=== PATIENT | female | born 2005 | race Caucasian/White ===

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

== ENCOUNTER 2024-01-06 12:29 | Outpatient (AMB) | payer BC, SELFPAY ==
--- NOTE | 2024-01-06 12:34 | MHC.PC.OV ---
Vital Signs 01/06/24 12:37 Height 5 ft Weight 116 lb BMI 22.7 BP 100/62 Blood Pressure Location Rt brachial Position Sitting Respiration 16 Pulse 49 L Pulse Source Pulse Oximeter Temp 98.2 F Temp Source Oral Pulse Oximetry (%) 96 Oxygen Delivery Method Room Air Intake Visit Reasons: follow up Intake Note: Follow up. Missing menstrual cycle, ei every other month. Collection Systems Consultant Required: No Allergies Penicillins Allergy (Intermediate, Verified 01/06/24 12:53) Hives Medication List - Last Reconciled 01/06/24 [facility] No Known Home Meds Tobacco use date assessed: 10/14/23 Dental Screening Dental Screen Date: 10/14/23 HPI HPI Comments History of Present Illness Details 17-year-old female with mild intermittent asthma, ADHD, myopia, eczema, vitamin-D deficiency, expressive language & reading disorder (diagnosed by [employer] success 2014 full IQ 83) Specialists Ophthalmology Dr. Cronin Here today to follow up on syncope and collapse that started about 7 months ago. Dad present. Symptoms only occur at the time of her menses. Labs done 10/14/2023: CBC show low white blood cell count 4.1, low neutrophils 41.3, high lymphocytes 50.7 low ANC 1.7, elevated transferrin 348, normal thyroid, normal CMP, urine shows high specific gravity otherwise normal. Since last visit, no syncope or presyncope. Has increased her po intake since last visit. Home now from school, finds it easier to eat. Periods cont to be irregular. LMP 11/05/23. Cont to decline OCP to help regular menses. Last period was not overly heavy. Normal She was referred to Hematology. Her chart shows that she was a no-show. When asked about this she states that she did show up and that she had labs drawn but then a provider never came in to see her. States that her mom has been trying to call the office and not able to get through and did not receive a return phone call. She remains interested in seeing Hematology. I have placed a new referral with these notes for the office to look into this. 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 Discussed the social pressures related to body weight an image in the [employer] industry. Encouraged her to eat and drink and did not become obsessed with a scale or the pressures from the mdoeling industry [facility] Medical History Asthma Surgical History No pertinent past surgical history Family History Mother Asthma Father Hypertension Asthma Social History Household Members: Other Housing: Other Housing Other:: Student Dorm Are you a primary health care / medical job titles to a significant other at home: No Do you presently have visiting nurse or other home services: No 75 years or older and lives alone: No Alcohol intake: never Patient Tobacco Use Status: Never used Tobacco e-Cigarette/Vaping Use: Never Used Second Hand Smoke Exposure: No service: No Current occupational status: student Current occupation: [employer] Current occupational exposures/hazards: No Cognitive needs: No Hearing needs: No Vision needs: Yes (glasses) Female Reproductive History Menstrual Age of Menarche: 13 Questionnaire Thrive Questionnaire Date Thrive assessed: 10/14/23 JAMA-7 AMB Questionnaire JAMA-7 Date JAMA - 7 assessed: 10/14/23 Source: Developed by Drs. Arun Martinez, Daya Dupont, Joseph Moreno and colleagues, with an educational juan david from [employer]. Review of Systems Const All systems reviewed & are unremarkable except as noted in HPI and below Physical exam (Primary Care) Vital Signs: Last Vital Signs Temp 98.2 F 01/06/24 12:37 Pulse 49 L 01/06/24 12:37 Resp 16 01/06/24 12:37 BP 100/62 01/06/24 12:37 Pulse Ox 96 01/06/24 12:37 Oxygen Delivery Method Room Air 01/06/24 12:37 BMI result Body Mass Index 22.7 Tobacco/Smoking Status: Tobacco use Status Tobacco use date assessed 10/14/23 01/06/24 12:39 Patient Tobacco Use Status Never used Tobacco 01/06/24 12:39 e-Cigarette/Vaping Use Never Used 01/06/24 12:39 Thrive Assessment: Date of Thrive Assessment Date Thrive assessed 10/14/23 01/06/24 12:39 Const Other: awake alert NAD accompanied by Dad Harsha scleras non icteric, no pallor MMM Pharynx WNL RRR LS CTAB Skin PWD Soft spoken, cooperative Assessment and Plan Assessment & Plan (1) Syncope and collapse: Comment: No further episodes since the last visit. Refer to hematology for evaluation of neutropenia. I have encouraged her to ensure that she is hydrating properly; avoid prolonged periods of fasting. Eat iron rich foods. Also advised that if she has any trouble getting into Hematology that she should send me a message on the portal so that I may follow up. Code(s): R55 - Syncope and collapse (2) Neutropenia: Comment: CBC show low white blood cell count 4.1, low neutrophils 41.3, high lymphocytes 50.7 low ANC 1.7, elevated transferrin 348, normal thyroid, normal CMP, urine shows high specific gravity otherwise normal Offered her to repeat these blood test today to confirm versus refer to hematology for further management. She wishes to be referred to Hematology. Referral [facility] to [facility]'s hematology group. Code(s): D70.9 - Neutropenia, unspecified Qualifiers: Neutropenia type: unspecified Qualified Code(s): D70.9 - Neutropenia, unspecified Plan This note is constructed using voice recognition software. While every effort has been made to ensure accuracy in manager enrollment, still errors may have been included Sometimes, these errors may affect the content or meaning of the given sentence . Total time spent caring for the patient today was 30 minutes. This includes time spent before the visit reviewing the chart, time spent during the visit, and time spent after the visit on documentation Orders: Referrals Hematology & Oncology Referral D70.9 - Neutropenia, unspecified, R55 - Syncope and collapse Patient Instructions: Return to office in June for complete physical exam. Sooner as needed. Coding Level of Care Code Est Pt Level 4 (26182) Diagnoses Syncope and collapse R55 Neutropenia, unspecified type D70.9 Neutropenia type: unspecified
[2024-01-06 12:37] VITALS: BP 100/62; PULSE 49; RESP 16; TEMP 36.8; O2SAT 96; BMI 22.7
== END 2024-01-06 13:02 | disposition home or self-care (01) ==
PROVIDERS: PCP Nurse Practitioner Family; Visit Provider Nurse Practitioner Family
DX: R55 Syncope and collapse (principal); D70.9 Neutropenia, unspecified
CPT/HCPCS: 99214

== ENCOUNTER → 2024-01-14 11:20 | Outpatient (BNV) | payer BC, SELFPAY | PROVIDERS: PCP Nurse Practitioner Family; Visit Provider Internal Medicine Medical Oncology | DX: D70.9 Neutropenia, unspecified (principal) | CPT/HCPCS: 99204 ==

== ENCOUNTER 2024-07-21 07:54 | Outpatient (AMB) | payer BC, SELFPAY ==
--- NOTE | 2024-07-21 07:57 | A.OFFPC_ITS ---
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 Nurse Unit Manager Required: No Allergies Penicillins Allergy (Intermediate, Verified 07/21/24 08:32) Hives Medication List - Last Reconciled 07/21/24 by ADELE Lynn No Known Home Meds Tobacco use date assessed: 10/14/23 Dental Screening Dental Screen Date: 07/21/24 Did you have a dental visit in the last 12 months?: Yes Did you have a dental problem in the last 6 months where you did not have access to dental care?: No Was dental information given to patient?: Patient has dentist HPI HPI Comments History of Present Illness Details 18-year-old female with mild intermitten t asthma, ADHD, myopia, eczema, vitamin-D deficiency, expressive language & reading disorder (diagnosed by [employer] for [employer] success 2014 full IQ 83) Surgery:None Family hx: Dad with DM, CV disease,CHF; Paternal aunt CV disease,CHF; older si ster w/ down syndrome & assoc heart disease other siblings alive and well 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 Mehrdad [place] [facility] [place] Consider bone marrow exam if wbc drops again, and falls to 2 or below. 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 Not sexually active. Does own breast exam. Last period 06/25-07/11/24, periods normal. No more fainting Eating and drinking; wt stable. Optho - glasses; last exam 3 years ago. Skin - no issues Left ankle, sprained during Volleyball years ago; then in 2019 after having COVID, wakes some days with pain on inside aspect of this ankle w/o swelling, bruising or skin changes. Has never had imaging done. Pain comes and goes. No worse since onset. Labs reviewed, normal Alk Phos trending. Plan Labs drawn today and cc'd to Heme. If abnormal, will need to f/u with heme --- results below show normal WBC. Per last note from david: 12/2023 consult Consider bone marrow exam if wbc drops again, and falls to 2 or be RTO 1 year for CPE and sooner PRN PFSH Medical History Asthma Surgical History No pertinent past surgical history Family History Mother Asthma Father Hypertension Asthma Social History (Updated 01/14/24 @ 11:12 by Alysha Chandler) Household Members: Other Housing: Other Housing Other:: Student Dorm Are you a primary care partner to a significant other at home: No Do you presently have visiting nurse or other home services: No 75 years or older and lives alone: No Alcohol intake: never Patient Tobacco Use Status: Never used Tobacco e-Cigarette/Vaping Use: Never Used Second Hand Smoke Exposure: No service: No Current occupational status: student Current occupation: [employer] Current occupational exposures/hazards: No Cognitive needs: No Hearing needs: No Vision needs: Yes (glasses) Female Reproductive History Menstrual Age of Menarche: 13 Questionnaire PHQ-9 Over the last 2 weeks, how often have you been bothered by any of the following problems? 1. Little interest or pleasure in doing things: not at all 2. Feeling down, depressed, or hopeless: not at all 3. Trouble falling or staying asleep, or sleeping too much: not at all 4. Feeling tired or having little energy: not at all 5. Poor appetite or overeating: not at all 6. Feeling bad about yourself - or that you are a failure or have let yourself or your family down: not at all 7. Trouble concentrating on things, such as reading the newspaper or watching television: not at all 8. Moving or speaking so slowly that other people could have noticed. Or the opposite - being so fidgety or restless that you have been moving around a lot more than usual: not at all 9. Thoughts that you would be better off or of hurting yourself in some way: not at all Total score: 0 Depression Screening Interpretation: Negative Depression Screening Done: Yes 81846 - PHQ-9 Billing: Yes Source: Developed by Drs. Arun Martinez, Joseph Conroy and colleagues, with an educational juan david from [employer]. Thrive Questionnaire Date Thrive assessed: 07/21/24 I am a: Patient What is your living situation today?: I have a steady place to live Within the past 12 months, did the food you bought not last and you didn't have the money to get more?: Never true Within the past 12 months, did you worry whether your food would run out before you got money to buy more?: Never true Do you have trouble paying for medicines?: No Do you have trouble getting transportation to medical appointments?: No Do you have trouble paying your heating and electricity bill?: No Do you have trouble taking care of your child, family member or friend?: No Do you have trouble with day-to-day activities such as bathing, preparing meals, shopping, managing finances, etc.?: No Are you currently unemployed and looking for a job?: No Are you interested in more education?: No Please select the resources that you would like help with: None Currently or been in a relationship where the following occur: No concerns reported THRIVE Score: 0 AUDIT C Alcohol Use Questionnaire (AUDIT-C) 1. How often do you have a drink containing alcohol?: Never 3. How often do you have six or more drinks on one occasion?: Never Total Score: 0 Score Reviewed/Action Taken: Yes JAMA-7 AMB Questionnaire JAMA-7 Date JAMA - 7 assessed: 07/21/24 Feeling nervous, anxious, or on edge: 0 = Not at all Not being able to stop or control worryin = Not at all Worrying too much about different things: 0 = Not at all Trouble relaxin = Not at all Being so restless that it is hard to sit still: 0 = Not at all Becoming easily annoyed or irritable: 0 = Not at all Feeling afraid as if something awful might happen: 0 = Not at all Total JAMA-7 score (0-4 normal; 5-9 mild; 10-14 moderate; 15-21 severe): 0 Source: Developed by Daya Padilla Kurt Kroenke and colleagues, with an educational juan david from [employer]. JAMA-7 Assessment Billing JAMA-7 Assessment Tool: JAMA-7 Assessment 28528 Physical exam (Primary Care) Vital Signs: Last Vital Signs Pulse 62 07/21/24 08:07 Resp 13 07/21/24 08:07 BP 111/65 07/21/24 08:07 Pulse Ox 97 07/21/24 08:07 Oxygen Delivery Method Room Air 07/21/24 08:07 BMI result Body Mass Index 23.6 Tobacco/Smoking Status: Tobacco use Status Tobacco use date assessed 10/14/23 07/21/24 07:57 Patient Tobacco Use Status Never used Tobacco 07/21/24 07:57 e-Cigarette/Vaping Use Never Used 07/21/24 07:57 PHQ-9: PHQ-9 Score PHQ-9: Total score 0 07/21/24 08:51 Depression Screening Interpretation: Negative Thrive Assessment: Date of Thrive Assessment Date Thrive assessed 07/21/24 07/21/24 08:03 Currently or been in a relationship where the following occur: No concerns reported Const Other: General: Well developed, well nourished, in no acute distress. Appears stated age. Head: Normocephalic, atraumatic. Eyes: Pupils are equal, round and reactive to light and accommodation. Conjunctivae are clear. Vision grossly normal. Ears: TMs clear AU, EACS WNL Nose: Patent, without discharge. Mouth: There are no ulcers or lesions noted. No inflammation, no post nasal drip, no plaques nor exudates. Neck: Supple, no adenopathy or thyromegaly. Lungs: Clear to auscultation bilaterally. No rales, rhonchi or wheeze noted. Good air flow in all cunningham. Heart: Regular rate and rhythm. No murmurs, click, rubs or gallops are noted. Abdomen: Bowel sounds present in all quadrants. The abdomen is soft, nontender, with no masses or organomegaly noted. No hernias are noted. Musculoskeletal: Joints are nontender, without swelling, redness, or effusions. Range of motion is observed to be normal. Pulses: Peripheral pulses are equal and palpable bilaterally. Extremities: No clubbing, cyanosis nor edema is noted. Neurologic: Gait and station normal. Cranial Nerves 2-12 intact. Motor strength grossly symmetrical and intact. No sensory loss. Balance normal. Skin: No rashes, ulcers, or lesions noted. Turgor is good. Skin color is good. Hair and nails are without abnormalities. Psych: Normal eye contact, affect and mood appropriate, and normal interactions. Patient is alert and appropriate to context. Office Procedures Flu Questionnaire Does the patient have a severe egg allergy?: No Does the patient have severe life threatening allergies?: No Does the patient have a fever or illness today?: No Has the patient ever had Guillain-Wilsall Syndrome?: No Has the patient ever had any past reaction to a flu shot?: No Immunizations Fluarix Triv [id number] (PF) 45 mcg (15 mcg x 3)/0.5 mL IM syringe Performing Provider: ANNE Lynn [place]forming [place] [facility] Administered by: Nellie Jiang RN on 07/21/24 08:50 Dose Route Admin Location Dispensed Lot Number Expiration Date NDC Mall Plant Caretaker 0.5 mL IM Right Deltoid 0.5 mL [id number] 02/15/25 [id number] Mobly VIS Given Date VIS Provided VIS Publication Date 07/21/24 Single Vaccine 21 Eligibility Eligibility Date Funding Source Not [facility] Eligible 07/21/24 Private Results Reviewed Results Reviewed: RUN: 07/21/24 1559 PAGE 1 [facility] [address] [place] [id number] Bus Repair Supervisor: Marcello Montaño M.D. 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: 07/21/24 ENTERED: 07/21/[address] [facility] [address]: Marian Barillas MD ORDERED: CBC Man Diff, Abs Neut Count Test Result Flag Reference WBC 4.8 4.8-10.8 X10*3/uL RBC 4.53 4.20-5.50 X10*6/uL HGB 13.3 12.0-16.0 g/dl HCT 38.8 37.0-47.0 % MCV 85.7 80.0-98.0 fL MCH 29.4 27.0-33.0 pg MCHC 34.3 31.0-35.0 g/dl RDW 12.3 11.0-16.0 % PLT 227 160-400 X10*3/uL MPV 10.7 9.4-12.3 fL NRBC Pct Auto 0.0 0.0-0.2 /100WBC ANC Neut Abs # 2.3 2.0-8.3 x10*3/uL NRBC Abs Auto 0.000 0.0-0.012 X10*3/uL Neut Pct Manual 49 45-73 % Band Pct 2 L 3-5 % Lymph PctManual 38 20-40 % AtLymph Pct Man 1 0-6 % [place] Pct Manual 9 2-11 % Eos Pct Manual 1 0-4 % ANC NeutAbsMan 2.4 2.0-8.3 X10*3/uL Lymph Abs Man 1.8 1.2-4.9 X10*3/uL [place] Abs Manual 0.4 0.1-1.2 X10*3/uL Platelet Est NORMAL NORMAL Plt Morph Com NORMAL RBC Morph NORMAL END OF REPORT Coding Level of Care Code Est Pt Prev Care 18-39y([id number]) Diagnoses Encounter for general adult medical examination without abnormal findings Z00.00 Neutropenia, unspecified type D70.9 Neutropenia type: unspecified Influenza vaccination administered at current visit Z23 Additional Codes JAMA-7 Assessment Billing - JAMA-7 Assessment Tool: JAMA-7 Assessment 88628 ([id number]) PHQ-9 - 66090 - PHQ-9 Billing: Yes ([id number]) Assessment & Plan Assessment & Plan (1) Encounter for general adult medical examination without abnormal findings: Code(s): Z00.00 - Encounter for general adult medical examination without abnormal findings (2) Neutropenia: Code(s): D70.9 - Neutropenia, unspecified Category: Medical Qualifiers: Neutropenia type: unspecified Qualified Code(s): D70.9 - Neutropenia, unspecified (3) Influenza vaccination administered at current visit: Code(s): Z23 - Encounter for immunization Plan . Orders: Orders Complete Blood Count Man Dif Today D70.9 - Neutropenia, unspecified Absolute Neutrophil Count Today D70.9 - Neutropenia, unspecified Influenza [id number] Immunization Today Z23 - Encounter for immunization Patient Instructions: Health screenings for women You should visit your health care provider from time to time, even if you are healthy. The purpose of these visits is to: Screen for medical issues Assess your risk for future medical problems Encourage a healthy lifestyle Update vaccinations and other preventive care services Help you get to know your provider in case of an illness Information Even if you feel fine, you should still see your provider for regular checkups. These visits can help you avoid problems in the future. For example, the only way to find out if you have high blood pressure is to have it checked regularly. High blood sugar and high cholesterol levels also may not have any symptoms in the early stages. A simple blood test can check for these conditions. There are specific times when you should see your provider or receive specific health screenings. The [place] Preventive Services Task Force publishes a list of recommended screenings. Below are screening guidelines for women ages 18 to 39. BLOOD PRESSURE SCREENING Your blood pressure should be checked at least once every 3 to 5 years if: Your blood pressure is in the normal range (top number less than 120 mm Hg and bottom number less than 80 mm Hg) You don't have risk factors for high blood pressure Ask your provider if you need your blood pressure checked more often if: The top number is 120 to 129 mm Hg or the bottom number is 70 to 79 mm Hg You have diabetes, heart disease, kidney problems, are overweight, or have certain other health conditions You have a first-degree relative with high blood pressure You are Black You had high blood pressure during a If the top number is 130 mm Hg or greater or the bottom number is 80 mm Hg or greater, this is considered stage 1 hypertension. Schedule an appointment with your provider to learn how you can reduce your blood pressure. Watch for blood pressure screenings in your area. Ask your provider if you can stop in to have your blood pressure checked. BREAST CANCER SCREENING Experts do not agree about the benefits of breast self-exams in finding breast cancer or saving lives. Talk to your provider about what is best for you. A screening mammogram is not recommended for most women under age 40. Your provider may discuss and recommend mammograms, MRI scans, or ultrasounds if you have an increased risk for breast cancer, such as: A mother or sister who had breast cancer at a young age (most often starting screening earlier than the age the close relative was diagnosed) You carry a high-risk genetic marker CERVICAL CANCER SCREENING Cervical cancer screening should start at age 21 years unless your provider advises otherwise. After the first test: Women ages 21 through 29 should have a Pap test every 3 years. Exoprts do not agree on whether HPV testing is recommended for this age group. Women ages 30 through 65 should be screened with either a Pap test every 3 years or the HPV test every 5 years or both tests every 5 years (called cotesting ). Women who have been treated for precancer (cervical dysplasia) should continue t o have Pap tests for 20 years after treatment or until age 65, whichever is longer. If you have had your uterus and cervix removed (total hysterectomy), and you have not been diagnosed with cervical cancer or precancer (high grade cervical neoplasia), you do not need cervical cancer screening. CHOLESTEROL SCREENING Cholesterol screening should begin at: Age 45 for women with no known risk factors for coronary heart disease Age 20 for women with known risk factors for coronary heart disease Repeat cholesterol screening should take place: Every 5 years for women with normal cholesterol levels More often if changes occur in lifestyle (including weight gain and diet) More often if you have diabetes, heart disease, kidney problems, or certain other conditions DIABETES SCREENING You should be screened for diabetes starting at age 35 and then repeated every 3 years if you have no risk factors for diabetes. Screening may need to start earlier and be repeated more often if you have other risk factors for diabetes, such as: You have a first degree relative with diabetes. You are overweight or have obesity. You have high blood pressure, prediabetes, or a history of heart disease. Screening for diabetes should be done if you are planning to become and you are overweight and have other risk factors such as high blood pressure. DENTAL EXAM Go to the dentist once or twice every year for an exam and cleaning. Your dentist will evaluate if you need more frequent visits. EYE EXAM Have an eye exam every 5 to 10 years before age 40. If you have vision problems, have an eye exam every 2 years or more often if recommended by your provider. You should have an eye exam that includes an examination of your retina (back of your eye) at least every year if you have diabetes. IMMUNIZATIONS Commonly needed vaccines include: Flu shot: get one every year. COVID-19 vaccine: ask your provider what is best for you. Tetanus-diphtheria and acellular pertussis (Tdap) vaccine: have one at or after age 19 as one of your tetanus-diphtheria vaccines if you did not receive it as an adolescent. Tetanus-diphtheria: have a booster (or Tdap) every 10 years. Varicella vaccine: receive 2 doses if you never had chickenpox or the varicella vaccine. Hepatitis B vaccine: receive 2, 3, or 4 doses, depending on your exact circumstances. Measles, mumps, and rubella (MMR) vaccine: receive 1 to 2 doses if you are not already immune to MMR. Your provider can tell you if you are immune. Ask your provider about the human papillomavirus (HPV) vaccine if: You have not received the HPV vaccine in the past You have not completed the full vaccine series (you should catch up on this shot) Ask your provider if you should receive other immunizations if you have certain health problems that increase your risk for some diseases such as pneumonia. INFECTIOUS DISEASE SCREENING Women who are sexually active should be screened for chlamydia and gonorrhea up until age 25. Women 25 years and older should be screened for chlamydia and gonorrhea if at high risk. Screening for hepatitis C: All adults ages 18 to 79 should get a one-time test for hepatitis C. people should be screened at every . Screening for human immunodeficiency virus (HIV): All people ages 15 to 65 should get a one-time test for HIV. Depending on your lifestyle and medical history, you may also need to be screened for infections such as syphilis and HIV, as well as other infections. PHYSICAL EXAM All adults should visit their provider from time to time, even if they are healthy. The purpose of these visits is to: Screen for disease Assess your risk of future medical problems Encourage a healthy lifestyle Update your vaccinations and other preventive care services Maintain a relationship with a provider in case of an illness Your height, weight, and BMI should be checked at every exam. During your exam, your provider may ask you about: Depression and anxiety Diet and exercise Alcohol and tobacco use Safety issues, such as using seat belts, smoke detectors, and intimate partner violence Your medicines and risk for interactions SKIN SELF-EXAM Your provider may check your skin for signs of skin cancer, especially if you're at high risk, such as if you: Have had skin cancer before Have close relatives with skin cancer Have a weakened immune system OTHER SCREENING Talk with your provider about colon cancer screening if you have a strong family history of colon cancer or polyps, or if you have had inflammatory bowel disease or polyps yourself. Routine bone density screening of women under 40 is not recommended.
[2024-07-21 08:07] VITALS: BP 111/65; PULSE 62; RESP 13; O2SAT 97; BMI 23.6
== END 2024-07-21 08:50 | disposition home or self-care (01) ==
PROVIDERS: PCP Nurse Practitioner Family; Visit Provider Nurse Practitioner Family
DX: Z00.00 Encounter for general adult medical examination without abnormal findings (principal); D70.9 Neutropenia, unspecified; Z23 Encounter for immunization

== ENCOUNTER 2024-07-21 08:02 | Outpatient (REF) | payer BC, SELFPAY ==
[2024-07-21 11:23] LABS: Baso%MD 0.4 %; Eos%MD 1.2 %; Hematocrit 38.8 % (37.0-47.0); Hemoglobin 13.3 g/dl (12.0-16.0); IG%MD 0.2 %; Mean Corpuscular HGB Conc 34.3 g/dl (31.0-35.0); Mean Corpuscular Hemoglobin 29.4 pg (27.0-33.0); Mean Corpuscular Volume 85.7 fL (80.0-98.0); Mean Platelet Volume 10.7 fL (9.4-12.3); Mono%MD 8.9 %; Neut%MD 47.3 %; Neutrophils Absolute Auto 2.3 x10*3/uL (2.0-8.3); Platelet Count 227 X10*3/uL (160-400); Red Blood Count 4.53 X10*6/uL (4.20-5.50); Red Cell Distribution Width 12.3 % (11.0-16.0); WBCANC 4.8 X10*3/uL; White Blood Count 4.8 X10*3/uL (4.8-10.8)
[2024-07-21 12:28] LABS: Atypical Lymphs Percent Manual 1 % (0-6); Band Neutrophils Percent 2 % (3-5); Eosinophils Percent Manual 1 % (0-4); Lymphocytes Absolute Manual 1.8 X10*3/uL (1.2-4.9); Lymphocytes Percent Manual 38 % (20-40); Monocytes Absolute Manual 0.4 X10*3/uL (0.1-1.2); Monocytes Percent Manual 9 % (2-11); Neutrophils Absolute Manual 2.4 X10*3/uL (2.0-8.3); Neutrophils Percent Manual 49 % (45-73)
[2024-07-21 12:30] LABS: Platelet Estimate NORMAL (NORMAL); RBC Morphology NORMAL
[2024-07-21 12:32] LABS: Platelet Morphology Comment NORMAL
== END 2024-07-21 08:03 | disposition home or self-care (01) ==
LOC: HO.WFDLDS 08:02
PROVIDERS: Visit Provider Nurse Practitioner Family
DX: Z00.00 Encounter for general adult medical examination without abnormal findings (principal); Z23 Encounter for immunization; D70.9 Neutropenia, unspecified
CPT/HCPCS: 36415; 85007; 85027; 90471; 90656; 96127

== ENCOUNTER 2025-07-30 08:00 | Outpatient (REF) | payer BC, SELFPAY ==
[2025-07-30 11:14] LABS: Hematocrit 40.0 % (37.0-47.0); Hemoglobin 13.5 g/dl (12.0-16.0); Mean Corpuscular HGB Conc 33.8 g/dl (31.0-35.0); Mean Corpuscular Hemoglobin 29.3 pg (27.0-33.0); Mean Corpuscular Volume 86.8 fL (80.0-98.0); NRBC Abs Auto 0.000 X10*3/uL (0.0-0.012); NRBC Pct Auto 0.0 /100WBC (0.0-0.2); Platelet Count 295 X10*3/uL (160-400); Red Blood Count 4.61 X10*6/uL (4.20-5.50); White Blood Count 4.7 X10*3/uL (4.8-10.8)
[2025-07-30 11:28] LABS: Alanine Aminotransferase 14 U/L (0-31); Albumin Level 4.9 g/dL (3.5-5.0); Alkaline Phosphatase 58 U/L (39-117); Anion Gap 9 (12-20); Aspartate Amino Transferase 18 U/L (5-31); Blood Urea Nitrogen 8 mg/dL (9-16); Calcium 9.6 mg/dL (8.4-10.2); Carbon Dioxide 27 mmol/L (22-29); Chloride 108 mmol/L (96-108); Estimated Glomerular Filt Rate > 60; Potassium 4.1 mmol/L (3.3-5.1); Sodium 140 mmol/L (135-145); Total Protein 7.3 g/dL (6.5-8.0)
== END 2025-07-30 08:01 | disposition home or self-care (01) ==
LOC: HO.WFDLDS 08:00
PROVIDERS: PCP Nurse Practitioner Family; Visit Provider Nurse Practitioner Family
DX: Z00.00 Encounter for general adult medical examination without abnormal findings (principal); Z23 Encounter for immunization; R07.89 Other chest pain; R59.0 Localized enlarged lymph nodes; D70.9 Neutropenia, unspecified; F41.1 Generalized anxiety disorder
CPT/HCPCS: 36415; 80053; 85027; 90471; 90656; 96127

== ENCOUNTER 2025-07-30 08:00 | Outpatient (AMB) | payer BC, SELFPAY ==
--- NOTE | 2025-07-30 08:02 | A.OFFPC_ITS ---
Vital Signs 3 07/30/25 08:05 Height 5 ft Weight 128 lb 4 oz BMI 25.0 BP 98/66 Blood Pressure Location Lt brachial Position Sitting Respiration 12 Pulse 71 Pulse Source Pulse Oximeter Temp 97.7 F Temp Source Oral Pulse Oximetry (%) 99 Oxygen Delivery Method Room Air Intake Visit Reasons: 1 year CPE Intake Note: CPE. Patient c/o chest sticking out. Emt Basic Required: No Allergies Penicillins Allergy (Intermediate, Verified 07/30/25 08:09) Hives Medication List - [facility] No Known Home Meds Tobacco use date assessed: 07/30/25 Dental Screening Dental Screen Date: 07/30/25 Did you have a dental visit in the last 12 months?: Yes Did you have a dental problem in the last 6 months where you did not have access to dental care?: No Was dental information given to patient?: Patient has dentist HPI HPI Comments 2 History of Present Illness0 Details 19-year-old female with mild intermitten t asthma, ADHD, myopia, eczema, vitamin-D deficiency, expressive language & reading disorder (diagnosed by [employer] 2014 full IQ 83), neutropenia, vasovagal syncope and collapse Surgery:None Family hx: Dad with DM, CV disease,CHF; Paternal aunt CV disease,CHF; older sister w/ down syndrome & assoc heart disease other siblings alive and well 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 Cronin 06/2025 wears glasses Heme at [facility] [place] 12/2023 consult Consider bone marrow exam if wbc drops again, and falls to 2 or below. 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 Here w/ mom today Chest Mass: - The patient reports that about two mon ths ago, her mother noticed a bump on her chest that felt weird when pressed. - She reports that the bump is now small er than it was. - She denies any pain when the area is t ouched now. Chest Pain: - She experienced chest pain during card io exercise with her roommate about a month ago. - She also reports that her chest hurts when she walks outside in the cold. - She describes the pain as feeling like her actual heart is hurting and is associated with a rapid heartbeat. - She denies any recent fainting episode s or wheezing. Anxiety: - The patient reports recent complaints of anxiety. - She describes episodes triggered by st ress, such as during the summer at a festival, where she felt anxiety and started crying. - During these episodes, she just cries. - She states it happens when she is real ly stressed about something and can identify triggers beforehand, but a recent episode at a festival was a surprise. - Her primary symptom is anxiety, and sh e denies feeling depressed. - She denies any thoughts about pregnanc y. - The patient is not currently in [facility]. Neutropenia: - The patient has a history of neutropen ia. - She is followed by a meat hostess prn, who recommended annual blood count checks. - Her numbers looked good last year. Mild Intermittent Asthma: - The patient has a history of mild inte rmittent asthma, which is well- controlled without medication. Past Medical History - Mild intermittent asthma, well control led without medication. - ADHD, controlled without medications. - Myopia. - Eczema. - Vitamin D deficiency. - History of expressive language and brayden ding disorder. - Neutropenia. - History of vasovagal syncope with clint apse. Past Surgical History - No prior surgeries were discussed. Family History - No changes in family history were repo rted over the last year. Social History - She is a college student majoring in [employer] and is expected to graduate. - She reports good eating habits and flu id intake. - She engaged in cardio exercise with he r roommate a month ago. - SBE - Periods are regular better saw GY N not due for Pap until age 20 Review of Systems - Constitutional: Denies fever, chills. Reports good eating and fluid intake. - Eyes: Reports myopia. Vision is okay, last checked a month ago. - ENT: Denies congestion. - Cardiovascular: Reports chest pain wit h cardio exercise and exposure to cold, associated with palpitations. Denies syncope. - Respiratory: Denies wheezing. - GI: Reports normal bowel movements. - : Reports normal urination. - Musculoskeletal: Reports a palpable bu mp on her chest. Denies pain in her hip or back during range of motion testing. - Integumentary: Reports well-controlled eczema. - Psychiatric: Reports episodes of anxie ty and crying triggered by stress. Denies depression. Physical Exam General: Well developed, well nourished, in no acute distress. Appears stated age. Head: Normocephalic, atraumatic. Eyes: Pupils are equal, round and reactive to light and accommodation. Conjunctivae are clear. Scleras nonicteric bilat. Vision grossly normal. Ears: TMs mildly cloudy bilat, AU, EACS WNL. Nose: Patent, without discharge. Neck: No carotid bruit bilat. Supple, no adenopathy or thyromegaly. Breast: Edu on SBE. Lungs: Clear to auscultation bilaterally. No rales, rhonchi or wheeze noted. Good air flow in all cunningham. Heart: Regular rate and rhythm. No murmurs, click, rubs or gallops are noted. Patient reports episodes of chest pain and heart beating fast. Abdomen: Bowel sounds present in all quadrants. The abdomen is soft, nontender, with no masses or organomegaly noted. No hernias are noted. : Deferred. Reviewed recommendations for routine LORRY WEIGHER. Pulses: Peripheral pulses are equal and palpable bilaterally. Extremities: No clubbing, cyanosis nor edema is noted. Neurologic: Gait and station normal. Cranial Nerves 2-12 intact. Motor strength grossly symmetrical and intact. No sensory loss. Balance normal. Skin: No rashes, ulcers, or lesions noted. Turgor is good. Skin color is good. Hair and nails are without abnormalities. Eczema reported as being good. Psych: Normal eye contact, affect and mood appropriate, and normal interactions. Patient is alert and appropriate to context. Reports anxiety episodes, crying, and stress-related symptoms. Referral for counseling suggested. Results Pending Medical Decision Making The patient is a 19-year-old female here for a complete physical exam. Her primary concerns are a recently noticed bump on her sternum and associated chest pain, as well as increasing anxiety. Given the new finding of a palpable sternal abnormality, a chest CT with and without contrast is warranted for further evaluation. For her anxiety, which appears to be triggered by stress and is impacting her quality of life, a multi-modal approach is appropriate. A referral for counseling will be placed to provide therapeutic support. After discussing treatment options, including as-needed versus daily medication, the patient has agreed to start a daily SSRI. I will prescribe citalopram (Celexa) starting at a low dose of 5 mg for two weeks, then increasing to 10 mg daily, to minimize side effects and improve tolerability. A virtual follow-up in 6-8 weeks will be scheduled to assess her response to the medication. For health maintenance, she will receive her annual flu shot today. We will also repeat her annual blood work to monitor her history of neutropenia, and the results will be shared with her meat hostess. The patient's other chronic conditions, including mild intermittent asthma and ADHD, are stable and well- controlled without medication. Plan Health Maintenance - The patient will receive her annual in fluenza vaccine during today's visit. - She will proceed to the lab for blood work after her appointment. - She should schedule her next annual ph ysical exam in one year. 1. Chest Mass - A chest CT with and without IV contras t will be ordered to evaluate the palpable abnormality over the sternum. - The scan will be submitted to [employer] for approval before scheduling. 2. Anxiety - A referral for counseling/therapy will be placed; the patient can choose virtual or in-person sessions. - Citalopram (Celexa) 10 mg tablets will be prescribed. She is instructed to take a half tablet (5 mg) daily for the first two weeks and then increase to a full tablet (10 mg) daily. - A virtual follow-up appointment will b e scheduled in 6-8 weeks to monitor the medication's effectiveness and side effects. 3. Neutropenia - Annual lab work will be ordered to heide ck her blood counts. - Results will be sent to her hematologi st, for continued monitoring. Patient Instructions - You will receive your flu shot today b efore you leave. - We will order a CT scan of your chest to look at the bump you noticed. We will send this request to your insurance, and the imaging center will call you to schedule it once it is approved. - We have sent a prescription for citalo pram to your pharmacy. For the first two weeks, break the tablet in half and take one half (5 mg) each day. After two weeks, you can start taking one whole tablet (10 mg) each day. You can take it any time of day, but try to be consistent. - This medication can sometimes cause a dull headache or an upset stomach when you first start. These side effects should go away. Taking it with a little food may help with stomach upset. - We are placing a referral for you to s [place] with a counselor about anxiety. You can tell them if you prefer virtual or in-person visits. - Please stop at the desk interviewer to get y our lab work done today and to schedule two follow-up appointments: one virtual visit in about 6 weeks to check on your new medication, and another physical exam in one year. - We will call you with your lab results . Consent Patient was informed and verbally consented to the use of an ambient scribe for clinic note documentation during this visit. An additional 20 minutes was spent addressing the problem(s) noted at todays visit. This includes time spent before the visit reviewing the chart, time spent during the visit, and time spent after the visit on documentation reviewing laboratory results, diagnostic imaging, medications, performing a medically necessary evaluation, counseling on diagnoses, care coordination, ordering appropriate tests, ordering appropriate medications, review of tests performed by other providers, reporting test results with the patient, communication with other healthcare providers. [facility] Medical History Asthma Surgical History No pertinent past surgical history Family History Mother Asthma Father Hypertension Asthma Social History (Updated 01/14/24 @ 11:12 by Alysha Chandler) Household Members: Other Housing: Other Housing Other:: Student Dorm Are you a primary care transition mgr to a significant other at home: No Do you presently have visiting nurse or other home services: No 75 years or older and lives alone: No Alcohol intake: never Patient Tobacco Use Status: Never used Tobacco e-Cigarette/Vaping Use: Never Used Second Hand Smoke Exposure: No service: No Current occupational status: student Current occupation: [employer] Current occupational exposures/hazards: No Cognitive needs: No Hearing needs: No Vision needs: Yes (glasses) Female Reproductive History Menstrual Age of Menarche: 13 Questionnaire PHQ-9 Over the last 2 weeks, how often have you been bothered by any of the following problems? 1. Little interest or pleasure in doing things: not at all 2. Feeling down, depressed, or hopeless: not at all 3. Trouble falling or staying asleep, or sleeping too much: not at all 4. Feeling tired or having little energy: not at all 5. Poor appetite or overeating: not at all 6. Feeling bad about yourself - or that you are a failure or have let yourself or your family down: not at all 7. Trouble concentrating on things, such as reading the newspaper or watching television: not at all 8. Moving or speaking so slowly that other people could have noticed. Or the opposite - being so fidgety or restless that you have been moving around a lot more than usual: not at all 9. Thoughts that you would be better off or of hurting yourself in some way: not at all Total score: 0 Depression Screening Interpretation: Negative Depression Screening Done: Yes 94296 - PHQ-9 Billing: Yes Source: Developed by Drs. Arun Martinez, Daya Dupont, Joseph Moreno and colleagues, with an educational juan david from [employer]. Thrive Questionnaire Date Thrive assessed: 07/30/25 I am a: Patient What is your living situation today?: I have a steady place to live Within the past 12 months, did the food you bought not last and you didn't have the money to get more?: Never true Within the past 12 months, did you worry whether your food would run out before you got money to buy more?: Never true Do you have trouble paying for medicines?: No Do you have trouble getting transportation to medical appointments?: Yes Do you have trouble paying your heating and electricity bill?: No Do you have trouble taking care of your child, family member or friend?: No Do you have trouble with day-to-day activities such as bathing, preparing meals, shopping, managing finances, etc.?: No Are you currently unemployed and looking for a job?: No Are you interested in more education?: No Please select the resources that you would like help with: None Currently or been in a relationship where the following occur: No concerns reported THRIVE Score: 1 AUDIT C Alcohol Use Questionnaire (AUDIT-C) 1. How often do you have a drink containing alcohol?: Never 3. How often do you have six or more drinks on one occasion?: Never Total Score: 0 Score Reviewed/Action Taken: Yes JAMA-7 AMB Questionnaire JAMA-7 Date JAMA - 7 assessed: 07/30/25 Feeling nervous, anxious, or on edge: 0 = Not at all Not being able to stop or control worryin = Not at all Worrying too much about different things: 0 = Not at all Trouble relaxin = Not at all Being so restless that it is hard to sit still: 0 = Not at all Becoming easily annoyed or irritable: 0 = Not at all Feeling afraid as if something awful might happen: 0 = Not at all Total JAMA-7 score (0-4 normal; 5-9 mild; 10-14 moderate; 15-21 severe): 0 Source: Developed by Drs. Arun Martinez, Daya Dupont, Joseph Moreno and colleagues, with an educational juan david from [employer]. JAMA-7 Assessment Billing JAMA-7 Assessment Tool: JAMA-7 Assessment 02437 Physical exam (Primary Care) Vital Signs: Last Vital Signs Temp 97.7 F 07/30/25 08:05 Pulse 71 07/30/25 08:05 Resp 12 07/30/25 08:05 BP 98/66 07/30/25 08:05 Pulse Ox 99 07/30/25 08:05 Oxygen Delivery Method Room Air 07/30/25 08:05 BMI result Body Mass Index 25.0 Tobacco/Smoking Status: Tobacco use Status Tobacco use date assessed 07/30/25 07/30/25 08:06 Patient Tobacco Use Status Never used Tobacco 07/30/25 08:06 e-Cigarette/Vaping Use Never Used 07/30/25 08:06 PHQ-9: PHQ-9 Score PHQ-9: Total score 0 07/30/25 08:12 Depression Screening Interpretation: Negative Thrive Assessment: Date of Thrive Assessment Date Thrive assessed 07/30/25 07/30/25 08:06 Currently or been in a relationship where the following occur: No concerns reported Chest Chest/axillae images: 2 1. where she complains of pain and swelling, there is some questionable swelling in this area ?? adenopathy; she has no clavicular or cervical adenopathy appreciated. overlying skin is intact. Office Procedures Flu Questionnaire Does the patient have a severe egg allergy?: No Does the patient have severe life threatening allergies?: No Does the patient have a fever or illness today?: No Has the patient ever had Guillain-[place] Syndrome?: No Has the patient ever had any past reaction to a flu shot?: No Immunizations Fluarix [id number] (PF) 45 mcg (15 mcg x 3)/0.5 mL IM syringe Performing Provider: ANNE Lynn Performing Location: [facility] [place] Family Medicine Administered by: Celestino Rojas MA on 07/30/25 08:35 2 Dose Route Admin Location Dispensed Lot Number Expiration Date NDC It Professional 0.5 mL IM Right Deltoid 0.5 mL [id number] 02/15/26 [id number] [employer] 2 VIS Given Date VIS Provided VIS Publication Date 07/30/25 Single Vaccine 24 Eligibility Eligibility Date Funding Source Not [facility] Eligible 07/30/25 Private Coding Level of Care Code Est Pt Level 3 (09820) Est Pt Prev Care 18-39y(52117) Diagnoses Adult general medical exam Z00.00 Neutropenia, unspecified type D70.9 Neutropenia type: unspecified Mid sternal chest pain R07.89 Mediastinal adenopathy R59.0 JAMA (generalized anxiety disorder) F41.1 Influenza vaccination administered at current visit Z23 Additional Codes JAMA-7 Assessment Billing - JAMA-7 Assessment Tool: JAMA-7 Assessment 17145 ([id number]) PHQ-9 - 20572 - PHQ-9 Billing: Yes ([id number]) Assessment & Plan Assessment & Plan (1) Adult general medical exam: Onset Date: ~07/30/25 Code(s): Z00.00 - Encounter for general adult medical examination without abnormal findings Category: Medical (2) Neutropenia: Code(s): D70.9 - Neutropenia, unspecified Category: Medical Qualifiers: Neutropenia type: unspecified Qualified Code(s): D70.9 - Neutropenia, unspecified (3) Mid sternal chest pain: Code(s): R07.89 - Other chest pain Category: Medical (4) Mediastinal adenopathy: Code(s): R59.0 - Localized enlarged lymph nodes Category: Medical (5) JAMA (generalized anxiety disorder): Code(s): F41.1 - Generalized anxiety disorder Category: Medical (6) Influenza vaccination administered at current visit: Onset Date: ~07/30/25 Code(s): Z23 - Encounter for immunization Category: Medical Plan . Orders: Orders 2 CT chest wo/w IV con Today D70.9 - Neutropenia, unspecified, R07.89 - Other chest pain, R59.0 - Localized enlarged lymph nodes Comprehensive Met. Panel Today D70.9 - Neutropenia, unspecified Complete Blood Count no Diff Today D70.9 - Neutropenia, unspecified Influenza [id number] Immunization Today Z23 - Encounter for immunization Referrals 2 Nurse Navigator Referral F41.1 - Generalized anxiety disorder Medications: New 2 citalopram 1/2 tab daily x 2 weeks then 1 tab daily 10 mg PO DAILY 30 tabs 1RF Patient Instructions: Health screenings for women You should visit your health care provider from time to time, even if you are healthy. The purpose of these visits is to: Screen for medical issues Assess your risk for future medical problems Encourage a healthy lifestyle Update vaccinations and other preventive care services Help you get to know your provider in case of an illness Information Even if you feel fine, you should still see your provider for regular checkups. These visits can help you avoid problems in the future. For example, the only way to find out if you have high blood pressure is to have it checked regularly. High blood sugar and high cholesterol levels also may not have any symptoms in the early stages. A simple blood test can check for these conditions. There are specific times when you should see your provider or receive specific health screenings. The [place] Preventive Services Task Force publishes a list of recommended screenings. Below are screening guidelines for women ages 18 to 39. BLOOD PRESSURE SCREENING Your blood pressure should be checked at least once every 3 to 5 years if: Your blood pressure is in the normal range (top number less than 120 mm Hg and bottom number less than 80 mm Hg) You don't have risk factors for high blood pressure Ask your provider if you need your blood pressure checked more often if: The top number is 120 to 129 mm Hg or the bottom number is 70 to 79 mm Hg You have diabetes, heart disease, kidney problems, are overweight, or have certain other health conditions You have a first-degree relative with high blood pressure You are Black You had high blood pressure during a If the top number is 130 mm Hg or greater or the bottom number is 80 mm Hg or greater, this is considered stage 1 hypertension. Schedule an appointment with your provider to learn how you can reduce your blood pressure. Watch for blood pressure screenings in your area. Ask your provider if you can stop in to have your blood pressure checked. BREAST CANCER SCREENING Experts do not agree about the benefits of breast self-exams in finding breast cancer or saving lives. Talk to your provider about what is best for you. A screening mammogram is not recommended for most women under age 40. Your provider may discuss and recommend mammograms, MRI scans, or ultrasounds if you have an increased risk for breast cancer, such as: A mother or sister who had breast cancer at a young age (most often starting screening earlier than the age the close relative was diagnosed) You carry a high-risk genetic marker CERVICAL CANCER SCREENING Cervical cancer screening should start at age 21 years unless your provider advises otherwise. After the first test: Women ages 21 through 29 should have a Pap test every 3 years. Exoprts do not agree on whether HPV testing is recommended for this age group. Women ages 30 through 65 should be screened with either a Pap test every 3 years or the HPV test every 5 years or both tests every 5 years (called cotesting ). Women who have been treated for precancer (cervical dysplasia) should continue to have Pap tests for 20 years after treatment or until age 65, whichever is longer. If you have had your uterus and cervix removed (total hysterectomy), and you have not been diagnosed with cervical cancer or precancer (high grade cervical neoplasia), you do not need cervical cancer screening. CHOLESTEROL SCREENING Cholesterol screening should begin at: Age 45 for women with no known risk factors for coronary heart disease Age 20 for women with known risk factors for coronary heart disease Repeat cholesterol screening should take place: Every 5 years for women with normal cholesterol levels More often if changes occur in lifestyle (including weight gain and diet) More often if you have diabetes, heart disease, kidney problems, or certain other conditions DIABETES SCREENING You should be screened for diabetes starting at age 35 and then repeated every 3 years if you have no risk factors for diabetes. Screening may need to start earlier and be repeated more often if you have other risk factors for diabetes, such as: You have a first degree relative with diabetes. You are overweight or have obesity. You have high blood pressure, prediabetes, or a history of heart disease. Screening for diabetes should be done if you are planning to become and you are overweight and have other risk factors such as high blood pressure. DENTAL EXAM Go to the dentist once or twice every year for an exam and cleaning. Your dentist will evaluate if you need more frequent visits. EYE EXAM Have an eye exam every 5 to 10 years before age 40. If you have vision problems, have an eye exam every 2 years or more often if recommended by your provider. You should have an eye exam that includes an examination of your retina (back of your eye) at least every year if you have diabetes. IMMUNIZATIONS Commonly needed vaccines include: Flu shot: get one every year. COVID-19 vaccine: ask your provider what is best for you. Tetanus-diphtheria and acellular pertussis (Tdap) vaccine: have one at or after age 19 as one of your tetanus-diphtheria vaccines if you did not receive it as an adolescent. Tetanus-diphtheria: have a booster (or Tdap) every 10 years. Varicella vaccine: receive 2 doses if you never had chickenpox or the varicella vaccine. Hepatitis B vaccine: receive 2, 3, or 4 doses, depending on your exact circumstances. Measles, mumps, and rubella (MMR) vaccine: receive 1 to 2 doses if you are not already immune to MMR. Your provider can tell you if you are immune. Ask your provider about the human papillomavirus (HPV) vaccine if: You have not received the HPV vaccine in the past You have not completed the full vaccine series (you should catch up on this shot) Ask your provider if you should receive other immunizations if you have certain health problems that increase your risk for some diseases such as pneumonia. INFECTIOUS DISEASE SCREENING Women who are sexually active should be screened for chlamydia and gonorrhea up until age 25. Women 25 years and older should be screened for chlamydia and gonorrhea if at high risk. Screening for hepatitis C: All adults ages 18 to 79 should get a one-time test for hepatitis C. people should be screened at every . Screening for human immunodeficiency virus (HIV): All people ages 15 to 65 should get a one-time test for HIV. Depending on your lifestyle and medical history, you may also need to be screened for infections such as syphilis and HIV, as well as other infections. PHYSICAL EXAM All adults should visit their provider from time to time, even if they are healthy. The purpose of these visits is to: Screen for disease Assess your risk of future medical problems Encourage a healthy lifestyle Update your vaccinations and other preventive care services Maintain a relationship with a provider in case of an illness Your height, weight, and BMI should be checked at every exam. During your exam, your provider may ask you about: Depression and anxiety Diet and exercise Alcohol and tobacco use Safety issues, such as using seat belts, smoke detectors, and intimate partner violence Your medicines and risk for interactions SKIN SELF-EXAM Your provider may check your skin for signs of skin cancer, especially if you're at high risk, such as if you: Have had skin cancer before Have close relatives with skin cancer Have a weakened immune system OTHER SCREENING Talk with your provider about colon cancer screening if you have a strong family history of colon cancer or polyps, or if you have had inflammatory bowel disease or polyps yourself. Routine bone density screening of women under 40 is not recommended.
[2025-07-30 08:05] VITALS: BP 98/66; PULSE 71; RESP 12; TEMP 36.5; O2SAT 99; BMI 25.0
== END 2025-07-30 08:36 | disposition home or self-care (01) ==
LOC: HO.HMCFM 08:00
PROVIDERS: PCP Nurse Practitioner Family; Visit Provider Nurse Practitioner Family
DX: Z00.00 Encounter for general adult medical examination without abnormal findings (principal); D70.9 Neutropenia, unspecified; R07.89 Other chest pain; R59.0 Localized enlarged lymph nodes; F41.1 Generalized anxiety disorder; Z23 Encounter for immunization